=== PATIENT | male | born 1980 | race Caucasian/White ===

== ENCOUNTER → 2022-06-21 10:16 | Outpatient (BNVA) | payer SELFPAY | PROVIDERS: Visit Provider Nurse Practitioner Family | DX: J02.9 Acute pharyngitis, unspecified (principal); J01.90 Acute sinusitis, unspecified; B96.89 Other specified bacterial agents as the cause of diseases classified elsewhere; H65.91 Unspecified nonsuppurative otitis media, right ear | CPT/HCPCS: 87071; 87880 ==